=== PATIENT | female | born 2000 | race Two or more races ===

== ENCOUNTER → 2024-04-23 | Day surgery (SDC) | payer SELFPAY ==
[~2024-04-23] MED LIST: Ketorolac 15 MG/ML SDV ONE; Midazolam 1 MG/ML 2 ML SDV ONE; Ondansetron 4 MG/2 ML SDV ONE; Propofol 200 MG/20 ML SDV ONE; Sodium Chloride 0.9% 10 ML Syringe FLUSH PRN; Sodium Chloride 0.9% 10 ML Syringe FLUSH SCH; fentaNYL 100 MCG/2 ML SDV ONE
[2024-04-23] MEDS: Lactated Ringers 1,000 ML IV SCH (10:00)
[2024-04-23] MEDS: EPINEPHrine 1 MG/ML SDV ONE (12:28)
[2024-04-23] MEDS: Bupivacaine 0.5% 30 ML SDV ONE (12:28)
== END | disposition home or self-care (01) ==
LOC: JD.SDS 09:17
PROVIDERS: ATTEND Surgery
DX: N61.1 Abscess of the breast and nipple (principal)
CPT/HCPCS: 19083; 81025; 87070; 87075; 87102; 87205; J0171; J0665; J1885; J2250; J2405; J2704; J3010; J7120; 00400